=== PATIENT | female | born 1935 | race Caucasian/White ===

== ENCOUNTER 2017-06-24 11:43 | Day surgery (SDC) | payer MEDICARE, OTHER ==
[2017-06-22 12:57] LABS: BASOPHILS % (AUTO) 0.6 % (0-1); EOSINOPHILS # (AUTO) 0.1 X10'3 (0-0.9); EOSINOPHILS % (AUTO) 2.5 % (0-6); HEMATOCRIT 40.5 % (35.0-45.0); LYMPHOCYTES % (AUTO) 18.4 % (21-51); MEAN CORPUSCULAR HEMOGLOBIN 32.1 PG (27.0-31.0); MEAN CORPUSCULAR HGB CONC 34.6 % (33.0-36.5); MEAN PLATELET VOLUME 8.4 FL (7.4-10.4); MONOCYTES # (AUTO) 0.4 X10'3 (0-0.9); MONOCYTES % (AUTO) 7.9 % (2-12); NEUTROPHILS # (AUTO) 3.7 X10'3 (1.8-7.7); NEUTROPHILS % (AUTO) 70.6 % (42-75); PLATELET COUNT 162 X10'3 (140-440); RED BLOOD COUNT 4.36 X10'6 (4.20-5.60); WHITE BLOOD COUNT 5.2 X10'3 (4.5-11.0)
[2017-06-22 13:06] LABS: ALBUMIN 3.9 G/DL (3.4-5.0); ANION GAP 8 (8-16); BLOOD UREA NITROGEN 13 MG/DL (7-18); BUN/CREATININE RATIO 12.6 (6.6-38.0); CALCIUM 9.3 MG/DL (8.5-10.1); CHLORIDE 104 MMOL/L (99-107); CREATININE 1.03 MG/DL (0.40-0.90); GLUCOSE 128 MG/DL (70-104); INR 1.2 INR; POTASSIUM 4.1 MMOL/L (3.5-5.1); SODIUM 142 MMOL/L (135-145); TOTAL CARBON DIOXIDE 30.4 MMOL/L (24-32); eGFR 51 ML/MIN
[2017-06-24] VITALS (13 sets, daily range): BP systolic 125–177; BP diastolic 56–89
[~2017-06-24] VITALS: Ht 165.1 cm; Wt 87.9 kg
[~2017-06-24 11:43] MED LIST: AMIO200T36 PO; APIX2.5T PO; ASCO10007 PO; CARV25TA PO; CHOL10002 PO; COLLAGEN PEPTIDE PO; DIGO250T PO; ENZY1TAB5 PO; GARL1000 PO; IMMUNE COMPLEX PO; KRIL1CAP12 PO; LEVO137T2 PO; MAGNESIUM LACTATE PO; MULT-1096 PO; MULT-1179 PO; UBID100C45 PO; [UNRECOGNIZED DRUG - OTHER] PO; [UNRECOGNIZED DRUG - OTHER] PO; [UNRECOGNIZED DRUG - OTHER] PO; ferrous gluconate PO
[2017-06-24] MEDS ORDERED: LORazepam 0.5 MG tablet PO ONE ×2 (12:05→12:10)
[2017-06-24] MEDS ORDERED: diphenhydrAMINE 25mg capsule PO ONE ×2 (12:05→12:10)
[2017-06-24] MEDS ORDERED: normal saline 1000ml 1,000 ML IV SCH ×2 (12:05→12:15)
[2017-06-24] MEDS ORDERED: MIDAZolam 5mg/ml 2ml vial IV ONE (12:10)
[2017-06-24] MEDS ORDERED: atropine 0.1mg/ml 10ml syringe IV ONE (12:10)
[2017-06-24] MEDS ORDERED: morphine 10mg/ml inj. IV ONE (12:10)
[2017-06-24] MEDS ORDERED: amiodarone 150mg/dext, iso-os 100 ML IV ONE (12:10)
[2017-06-24] MEDS ORDERED: CINN500C15 PO (13:05)
[2017-06-24] MEDS ORDERED: AMIO200T57 PO (13:05)
[2017-06-24] MEDS ORDERED: C,E,1CAP PO (13:32)
[2017-06-24] MEDS ORDERED: MAGN400C PO (13:32)
[2017-06-24] MEDS ORDERED: [UNRECOGNIZED DRUG - OTHER] PO (13:34)
== END 2017-06-24 16:00 | disposition home or self-care (01) ==
LOC: SSTAY O 11:43
PROVIDERS: ATTEND Internal Medicine Cardiovascular Disease
DX: I48.1 Persistent atrial fibrillation (principal); I10 Essential (primary) hypertension; I25.10 Atherosclerotic heart disease of native coronary artery without angina pectoris; F41.9 Anxiety disorder, unspecified; E03.9 Hypothyroidism, unspecified; G47.33 Obstructive sleep apnea (adult) (pediatric); Z90.49 Acquired absence of other specified parts of digestive tract; Z96.651 Presence of right artificial knee joint; Z98.42 Cataract extraction status, left eye; Z98.41 Cataract extraction status, right eye; Z90.710 Acquired absence of both cervix and uterus; Z98.51 Tubal ligation status; Z88.7 Allergy status to serum and vaccine; Z88.6 Allergy status to analgesic agent; Z88.1 Allergy status to other antibiotic agents; Z88.2 Allergy status to sulfonamides; Z88.8 Allergy status to other drugs, medicaments and biological substances; Z79.01 Long term (current) use of anticoagulants; Z95.0 Presence of cardiac pacemaker; Z79.899 Other long term (current) drug therapy; Z98.890 Other specified postprocedural states
CPT/HCPCS: 36415; 80048; 85025; 85610; 92960; 93005; J2250; J2270; J7030; A4620; J0282; J0461

== ENCOUNTER 2017-07-22 15:51 | Outpatient (CLI) | payer MEDICARE, OTHER ==
[~2017-07-22] VITALS: Ht 162.6 cm; Wt 86.2 kg
[~2017-07-22 15:51] MED LIST changes: +AMIO200T57 PO; +C,E,1CAP PO; +CINN500C15 PO; +MAGN400C PO; -MAGNESIUM LACTATE PO; +[UNRECOGNIZED DRUG - OTHER] PO; -[UNRECOGNIZED DRUG - OTHER] PO; -[UNRECOGNIZED DRUG - OTHER] PO
[2017-07-22 16:20] LABS: TOTAL HEMOGLOBIN 11.5 G/dl (12.0-16.0)
[2017-07-22] MEDS ORDERED: albuterol 2.5 MG/3 ML nebule NEB PRN (16:50)
== END 2017-07-22 23:59 | disposition home or self-care (01) ==
LOC: RT 15:51
PROVIDERS: ATTEND Internal Medicine Cardiovascular Disease
DX: Z51.81 Encounter for therapeutic drug level monitoring (principal); J98.4 Other disorders of lung; I10 Essential (primary) hypertension; Z79.899 Other long term (current) drug therapy
CPT/HCPCS: 71046; 85018; 94010; 94727; 94729

== ENCOUNTER 2017-09-25 18:33 | Emergency (ER) | payer MEDICARE, OTHER ==
[~2017-09-25] VITALS: Ht 162.6 cm; Wt 73.3 kg
[2017-09-25 18:41] VITALS: BP 165/89
[2017-09-26] MEDS ORDERED: AMOX-419 PO (13:12)
== END 2017-09-25 22:14 | disposition left against medical advice (07) ==
LOC: ER 18:33
DX: M79.676 Pain in unspecified toe(s) (principal); Z53.21 Procedure and treatment not carried out due to patient leaving prior to being seen by health care provider

== ENCOUNTER 2017-09-26 11:19 | Emergency (ER) | payer MEDICARE, OTHER ==
[~2017-09-26] VITALS: Ht 162.6 cm; Wt 81.8 kg
[2017-09-26 11:31] VITALS: BP 137/65
[2017-09-26] MEDS ORDERED: TETanus/Pertussis (Acell)/Diphther VAC/PF (Tdap-Adult) 0.5ml syringe IM ONE (13:05)
[2017-09-26] MEDS ORDERED: amox tr/potassium clavulanate 875/125mg TAB PO ONE (13:05)
[2017-09-26] MEDS ORDERED: AMOX-419 PO (13:12)
== END 2017-09-26 13:28 | disposition home or self-care (01) ==
LOC: ER 11:20
DX: L08.9 Local infection of the skin and subcutaneous tissue, unspecified (principal); I10 Essential (primary) hypertension; Z90.710 Acquired absence of both cervix and uterus; Z98.890 Other specified postprocedural states; Z88.2 Allergy status to sulfonamides; Z88.5 Allergy status to narcotic agent; Z88.1 Allergy status to other antibiotic agents; Z79.899 Other long term (current) drug therapy; Z79.2 Long term (current) use of antibiotics
CPT/HCPCS: 90471; 90715; 99283

== ENCOUNTER 2019-11-16 08:38 | Day surgery (SDC) | payer MEDICARE, OTHER ==
[2019-11-15 15:22] LABS: BASOPHILS % (AUTO) 0.9 % (0-1); EOSINOPHILS # (AUTO) 0.1 X10'3 (0-0.9); HEMATOCRIT 42.9 % (35.0-45.0); HEMOGLOBIN 14.3 g/dl (12.0-16.0); LYMPHOCYTES # (AUTO) 1.5 X10'3 (1.1-4.8); LYMPHOCYTES % (AUTO) 31.7 % (21-51); MEAN CORPUSCULAR HEMOGLOBIN 31.9 PG (27.0-31.0); MEAN CORPUSCULAR HGB CONC 33.3 g/dL (33.0-36.5); MEAN CORPUSCULAR VOLUME 95.6 FL (78-98); MEAN PLATELET VOLUME 8.5 FL (7.4-10.4); MONOCYTES # (AUTO) 0.5 X10'3 (0-0.9); MONOCYTES % (AUTO) 10.9 % (2-12); NEUTROPHILS # (AUTO) 2.5 X10'3 (1.8-7.7); NEUTROPHILS % (AUTO) 53.5 % (42-75); PLATELET COUNT 182 X10'3 (140-440); RED BLOOD COUNT 4.49 X10'6 (4.20-5.60); RED CELL DISTRIBUTION WIDTH 13.9 % (11.5-14.5); WHITE BLOOD COUNT 4.7 X10'3 (4.5-11.0)
[2019-11-15 15:32] LABS: ALBUMIN 3.9 G/DL (3.4-5.0); ANION GAP 6 (8-16); BLOOD UREA NITROGEN 16 MG/DL (7-18); BUN/CREATININE RATIO 18.8 (6.6-38.0); CALCIUM 9.4 MG/DL (8.5-10.1); CHLORIDE 106 MMOL/L (99-107); CREATININE 0.85 MG/DL (0.40-0.90); GLUCOSE 90 MG/DL (70-104); POTASSIUM 4.2 MMOL/L (3.5-5.1); SODIUM 140 MMOL/L (135-145); TOTAL CARBON DIOXIDE 28.2 MMOL/L (24-32); eGFR 63 ML/MIN
[2019-11-16] VITALS (19 sets, daily range): BP systolic 118–154; BP diastolic 62–88
[~2019-11-16] VITALS: Ht 162.6 cm; Wt 79.2 kg
[~2019-11-16 08:38] MED LIST changes: -AMIO200T57 PO; +AMIO200T61 PO; +ASCO100031 PO; -ASCO10007 PO
[2019-11-16] MEDS ORDERED: amiodarone 150mg/dext, iso-os 100 ML IV ONE (09:05)
[2019-11-16] MEDS ORDERED: atropine 0.1mg/ml 10ml syringe IV ONE (09:05)
[2019-11-16] MEDS ORDERED: MIDAZolam 1mg/ml 10ml vial IV ONE (09:05)
[2019-11-16] MEDS ORDERED: morphine 10mg/ml inj. IV ONE (09:05)
[2019-11-16] MEDS ORDERED: LORazepam 0.5 MG tablet PO ONE (09:05)
[2019-11-16] MEDS ORDERED: diphenhydrAMINE 25mg capsule PO ONE (09:05)
[2019-11-16] MEDS ORDERED: SOTA80TA46 PO (09:10)
[2019-11-16] MEDS ORDERED: DIGO125T20 PO (09:13)
== END 2019-11-16 12:55 | disposition home or self-care (01) ==
LOC: SSTAY O 08:38
PROVIDERS: ATTEND Internal Medicine Cardiovascular Disease
DX: I48.91 Unspecified atrial fibrillation (principal); I10 Essential (primary) hypertension; I25.10 Atherosclerotic heart disease of native coronary artery without angina pectoris; G47.30 Sleep apnea, unspecified
CPT/HCPCS: 36415; 80048; 85025; 85610; 92960; J2250; J2270; Q0163; 93005

== ENCOUNTER 2020-04-18 07:15 | Day surgery (SDC) | payer MEDICARE, OTHER ==
[2020-04-17 15:49] LABS: BASOPHILS % (AUTO) 0.7 % (0-1); EOSINOPHILS # (AUTO) 0.2 X10'3 (0-0.9); HEMATOCRIT 40.5 % (35.0-45.0); HEMOGLOBIN 13.7 g/dl (12.0-16.0); LYMPHOCYTES # (AUTO) 1.2 X10'3 (1.1-4.8); LYMPHOCYTES % (AUTO) 23.3 % (21-51); MEAN CORPUSCULAR HGB CONC 33.9 g/dL (33.0-36.5); MEAN CORPUSCULAR VOLUME 94.6 FL (78-98); MEAN PLATELET VOLUME 8.5 FL (7.4-10.4); MONOCYTES # (AUTO) 0.6 X10'3 (0-0.9); MONOCYTES % (AUTO) 10.8 % (2-12); NEUTROPHILS # (AUTO) 3.3 X10'3 (1.8-7.7); NEUTROPHILS % (AUTO) 62.2 % (42-75); PLATELET COUNT 162 X10'3 (140-440); RED BLOOD COUNT 4.28 X10'6 (4.20-5.60); RED CELL DISTRIBUTION WIDTH 13.9 % (11.5-14.5); WHITE BLOOD COUNT 5.3 X10'3 (4.5-11.0)
[2020-04-17 15:59] LABS: ANION GAP 7 (8-16); BLOOD UREA NITROGEN 15 MG/DL (7-18); BUN/CREATININE RATIO 16.9 (6.6-38.0); CALCIUM 9.8 MG/DL (8.5-10.1); CHLORIDE 106 MMOL/L (99-107); CREATININE 0.89 MG/DL (0.40-0.90); GLUCOSE 105 MG/DL (70-104); PARTIAL THROMBOPLASTIN TIME 26 SECONDS (22-32); POTASSIUM 4.4 MMOL/L (3.5-5.1); SODIUM 143 MMOL/L (135-145); TOTAL CARBON DIOXIDE 29.8 MMOL/L (24-32); eGFR 60 ML/MIN
[~2020-04-18] VITALS: Ht 162.6 cm; Wt 86.6 kg
[2020-04-18] VITALS (9 sets, daily range): BP systolic 137–161; BP diastolic 42–124
[~2020-04-18 07:15] MED LIST changes: -AMIO200T36 PO; -AMIO200T61 PO; -CARV25TA PO; +DIGO125T20 PO; -DIGO250T PO; +SOTA80TA46 PO; -[UNRECOGNIZED DRUG - OTHER] PO; -ferrous gluconate PO
[2020-04-18] MEDS ORDERED: cefazolin/dext.iso 2gm/50ml 50 ML IV ONE (08:20)
[2020-04-18] MEDS ORDERED: iron liquid PO (08:28)
[2020-04-18] MEDS ORDERED: BETA300T PO (08:28)
[2020-04-18] MEDS ORDERED: SELE200C PO (08:28)
[2020-04-18] MEDS ORDERED: VITA-268 PO (08:28)
[2020-04-18] MEDS ORDERED: [UNRECOGNIZED DRUG - OTHER] PO (08:28)
[2020-04-18] MEDS ORDERED: LEVO25TA2 PO (08:28)
[2020-04-18] MEDS ORDERED: [UNRECOGNIZED DRUG - OTHER] PO (08:28)
[2020-04-18] MEDS ORDERED: CHRM1TAB PO (08:28)
[2020-04-18] MEDS ORDERED: CARV-50 PO (08:28)
[2020-04-18] MEDS ORDERED: DIGO125T PO (08:28)
[2020-04-18] MEDS ORDERED: LIDOcaine 1% (10mg/ml)w/preservative injection 20ml MDV ONE (09:23)
[2020-04-18] MEDS ORDERED: fentaNYL/PF 50MCG/1 ML 2ML syringe ONE (09:23)
[2020-04-18] MEDS ORDERED: midazolam 2 mg/2 ml injection ONE (09:23)
[2020-04-18] MEDS ORDERED: ceFAZolin 1000mg inj ONE (10:04)
[2020-04-18] MEDS ORDERED: HYDROcodone/acetaminophen 10/325mg tab PO PRN (11:35)
[2020-04-18] MEDS ORDERED: HYDROcodone/acetaminophen 5mg/325mg tablet PO PRN (11:35)
[2020-04-18] MEDS ORDERED: vancomycin/NS 1 GM ADD-VANTAGE 250 ML IV ONE (12:00)
== END 2020-04-18 15:00 | disposition home or self-care (01) ==
LOC: SSTAY O 07:15
PROVIDERS: ATTEND Internal Medicine Cardiovascular Disease
DX: Z45.010 Encounter for checking and testing of cardiac pacemaker pulse generator [battery] (principal); I49.5 Sick sinus syndrome; I48.92 Unspecified atrial flutter; R06.00 Dyspnea, unspecified
CPT/HCPCS: 33228; 36415; 80048; 85025; 85610; 85730; 93005; C1785; J0690; J2001; J2250; J3010; J3370; 99152; 99153; A4620; A6258; A6449; C1894

== ENCOUNTER 2020-07-13 07:07 | Day surgery (SDC) | payer MEDICARE, OTHER ==
[2020-07-09 15:44] LABS: EOSINOPHILS # (AUTO) 0.2 X10'3 (0-0.9); EOSINOPHILS % (AUTO) 3.6 % (0-6); LYMPHOCYTES # (AUTO) 1.1 X10'3 (1.1-4.8); LYMPHOCYTES % (AUTO) 25.9 % (21-51); MEAN CORPUSCULAR HEMOGLOBIN 32.3 PG (27.0-31.0); MEAN PLATELET VOLUME 8.7 FL (7.4-10.4); MONOCYTES # (AUTO) 0.4 X10'3 (0-0.9); NEUTROPHILS # (AUTO) 2.6 X10'3 (1.8-7.7); NEUTROPHILS % (AUTO) 59.5 % (42-75); PRE OP HEMATOCRIT 41.6 % (35.0-45.0); PRE OP HEMOGLOBIN 14.2 g/dL (12.0-16.0); PRE OP PLATELET COUNT 132 X10'3 (140-440); RED BLOOD COUNT 4.38 X10'6 (4.20-5.60); RED CELL DISTRIBUTION WIDTH 14.9 % (11.5-14.5)
[2020-07-09 15:57] LABS: PRE OP INR 1.2 INR; PRE OP PROTIME 12.4 SECONDS (9.0-12.0)
[2020-07-09 16:07] LABS: ALBUMIN 4.1 G/DL (3.4-5.0); ALBUMIN/GLOBULIN RATIO 1.2 (1.1-1.5); ALKALINE PHOSPHATASE 92 IU/L (46-116); BLOOD UREA NITROGEN 12 MG/DL (7-18); BUN/CREATININE RATIO 13.8 (6.6-38.0); CHLORIDE 104 MMOL/L (99-107); CREATININE 0.87 MG/DL (0.40-0.90); PRE OP ALT 47 U/L (30-65); PRE OP ANION GAP 8 (8-16); PRE OP AST 40 U/L (10-37); PRE OP BILIRUB, TOTAL 0.7 MG/DL (0.0-1.0); PRE OP GLUCOSE 99 MG/DL (70-104); PRE OP POTASSIUM 4.1 MMOL/L (3.4-5.1); PRE OP SODIUM 142 MMOL/L (135-145); TOTAL CARBON DIOXIDE 29.6 MMOL/L (24-32); TOTAL PROTEIN 7.4 G/DL (6.4-8.2); eGFR 62 ML/MIN
[~2020-07-13] VITALS: Ht 165.1 cm; Wt 86.0 kg
[~2020-07-13 07:07] MED LIST changes: +BETA300T PO; +BUPIVAcaine/PF 2.5 mg/ml (0.25%) 30ml vial ONE; -C,E,1CAP PO; +CARV-50 PO; +CHRM1TAB PO; -CINN500C15 PO; -COLLAGEN PEPTIDE PO; +DIGO125T PO; -DIGO125T20 PO; +DOCUMENT DATE & TIME OF BETA-BLOCKER PO ONE; -ENZY1TAB5 PO; +GINK120C PO; +IODI1GRA PO; -KRIL1CAP12 PO; -LEVO137T2 PO; +LEVO25TA2 PO; -MULT-1096 PO; -MULT-1179 PO; +QUER1POW PO; +SELE200C PO; -SOTA80TA46 PO; +VITA-268 PO; +ZINC50TA67 PO; +[UNRECOGNIZED DRUG - OTHER] PO; +[UNRECOGNIZED DRUG - OTHER] PO; +[UNRECOGNIZED DRUG - OTHER] PO; +[UNRECOGNIZED DRUG - OTHER] PO; +[UNRECOGNIZED DRUG - OTHER] PO; -[UNRECOGNIZED DRUG - OTHER] PO; +cefazolin/dext.iso 2gm/100ml IV ONE; +famotidine 20mg tablet PO ONE; +ringers solution, lacted 1,000 ML IV SCH
[2020-07-13 07:25] VITALS: BP 141/88
[2020-07-13] MEDS ORDERED: fentaNYL/PF 50MCG/1 ML 2ML syringe ONE (09:26)
[2020-07-13] MEDS ORDERED: midazolam 1 mg/ML 2ml injection ONE (09:41)
[2020-07-13] MEDS ORDERED: proCHLORperazine 10 MG/2 ml inj IV PRN (09:50)
[2020-07-13] MEDS ORDERED: ondansetron/PF 4mg/2ml inj IV PRN (09:50)
[2020-07-13] MEDS ORDERED: ringers solution, lacted 1,000 ML IV SCH (09:50)
[2020-07-13] MEDS ORDERED: fentaNYL/PF 50MCG/1 ML 2ML syringe IV PRN ×2 (09:50)
[2020-07-13] MEDS ORDERED: acetaminophen 1,000mg/100ml IV 100 ML IV PRN (09:50)
[2020-07-13] MEDS ORDERED: propofol inj 20 ML IV ONE (09:59)
[2020-07-13 10:05] VITALS: BP 127/66
--- NOTE | 2020-07-13 10:05 | NUR ---
Received from OR via BED , accompanied by Anesthesiologist and report given by Anesthesiologist. PATIENT AWAKE AND RESPONSIVE, NO S/S OF PAIN, V/S WNL, PACER SPIKES PRESENT OCCASIONALLY, SCD ON, 20G TO LUE, RIGHT WRIST DRESSING CDI. ICE AND ELEVATED RUE. NC TO 2L PT STATES SHE HAS A CPAP MACHINE AT HOME.
[2020-07-13 10:10] VITALS: BP 144/68
[2020-07-13 10:20] VITALS: BP 137/64
[2020-07-13 10:30] VITALS: BP 133/68
--- NOTE | 2020-07-13 11:04 | NUR ---
PATIENT A&OX4, DENIES PAIN, V/S STABLE, SCD OFF, 20G TO LUE D/C, drsg to RIGHT HAND CDI. I HAVE REVIEWED D/C ORDERS WITH PATIENT AND HER DAUGHTER AND THEY HAVE VERBALIZED UNDERSTANDING. PATIENT D/C HOME WITH ALL BELONGINGS AND DAUGHTER GAVE TRANSPORT. PT KNOWS TO USE HER CPAP FOR AT LEAST NEXT 24 HOURS WHENEVER RESTING. ICE PACKS SENT HOME WITH PATIENT.
== END 2020-07-13 10:55 | disposition home or self-care (01) ==
LOC: PAS 07:07
PROVIDERS: ATTEND Orthopaedic Surgery Hand Surgery
DX: G56.01 Carpal tunnel syndrome, right upper limb (principal); Z20.822 Contact with and (suspected) exposure to COVID-19; G47.30 Sleep apnea, unspecified; I48.91 Unspecified atrial fibrillation; E03.9 Hypothyroidism, unspecified; E66.9 Obesity, unspecified; Z68.31 Body mass index [BMI] 31.0-31.9, adult; Z86.11 Personal history of tuberculosis; Z88.2 Allergy status to sulfonamides; Z88.5 Allergy status to narcotic agent; Z88.8 Allergy status to other drugs, medicaments and biological substances; Z88.7 Allergy status to serum and vaccine; Z79.899 Other long term (current) drug therapy; Z79.01 Long term (current) use of anticoagulants; Z90.710 Acquired absence of both cervix and uterus; Z98.890 Other specified postprocedural states; Z90.49 Acquired absence of other specified parts of digestive tract; Z98.51 Tubal ligation status
CPT/HCPCS: 36415; 64721; 80053; 82948; 85025; 85610; 85730; J2250; J2704; J3010; J3490; U0003; U0005; A4215; J7120

== ENCOUNTER 2022-05-14 15:18 | Emergency (ER) | payer MEDICARE, OTHER ==
[~2022-05-14] VITALS: Ht 163.8 cm; Wt 76.4 kg
[~2022-05-14 15:18] MED LIST changes: -BUPIVAcaine/PF 2.5 mg/ml (0.25%) 30ml vial ONE; -DOCUMENT DATE & TIME OF BETA-BLOCKER PO ONE; -cefazolin/dext.iso 2gm/100ml IV ONE; -famotidine 20mg tablet PO ONE; -ringers solution, lacted 1,000 ML IV SCH
[2022-05-14 15:46] LABS: BASOPHILS % (AUTO) 0.7 % (0-1); EOSINOPHILS # (AUTO) 0.2 X10'3 (0-0.9); EOSINOPHILS % (AUTO) 3.3 % (0-6); HEMATOCRIT 40.7 % (35.0-45.0); HEMOGLOBIN 13.5 g/dl (12.0-16.0); LYMPHOCYTES # (AUTO) 1.2 X10'3 (1.1-4.8); LYMPHOCYTES % (AUTO) 22.9 % (21-51); MEAN CORPUSCULAR HEMOGLOBIN 30.9 PG (27.0-31.0); MEAN CORPUSCULAR HGB CONC 33.1 g/dL (33.0-36.5); MEAN CORPUSCULAR VOLUME 93.3 FL (78-98); MEAN PLATELET VOLUME 8.1 FL (7.4-10.4); MONOCYTES # (AUTO) 0.6 X10'3 (0-0.9); NEUTROPHILS # (AUTO) 3.1 X10'3 (1.8-7.7); NEUTROPHILS % (AUTO) 62.1 % (42-75); PLATELET COUNT 182 X10'3 (140-440); RED BLOOD COUNT 4.37 X10'6 (4.20-5.60); RED CELL DISTRIBUTION WIDTH 14.5 % (11.5-14.5); WHITE BLOOD COUNT 5.1 X10'3 (4.5-11.0)
[2022-05-14 15:52] LABS: ALANINE AMINOTRANSFERASE 38 U/L (12-78); ALBUMIN 4.2 G/DL (3.4-5.0); ALBUMIN/GLOBULIN RATIO 1.3 (1.1-1.5); ALKALINE PHOSPHATASE 118 IU/L (46-116); ANION GAP 6 (8-16); ASPARTATE AMINO TRANSFERASE 29 U/L (10-37); BILIRUBIN,TOTAL 0.7 MG/DL (0.1-1.0); BLOOD UREA NITROGEN 14 MG/DL (7-18); BUN/CREATININE RATIO 18.4 (6.6-38.0); CALCIUM 9.5 MG/DL (8.5-10.1); CHLORIDE 106 MMOL/L (99-107); CREATININE 0.76 MG/DL (0.40-0.90); GLUCOSE 109 MG/DL (70-104); POTASSIUM 4.2 MMOL/L (3.5-5.1); SODIUM 142 MMOL/L (135-145); TOTAL CARBON DIOXIDE 29.9 MMOL/L (24-32); TOTAL PROTEIN 7.5 G/DL (6.4-8.2); eGFR 72 ML/MIN
[2022-05-14 15:59] LABS: MAGNESIUM 2.2 MG/DL (1.5-2.4)
[2022-05-14 16:31] VITALS: BP 167/81
== END 2022-05-14 20:29 | disposition left against medical advice (07) ==
LOC: ER 15:18
DX: R07.9 Chest pain, unspecified (principal); Z53.21 Procedure and treatment not carried out due to patient leaving prior to being seen by health care provider
CPT/HCPCS: 36415; 71045; 80053; 83735; 83880; 84484; 85025; 93005; 99281

== ENCOUNTER 2022-12-11 08:31 | Inpatient (IN) | payer MEDICARE, OTHER ==
[~2022-12-11] VITALS: Ht 162.6 cm; Wt 80.0 kg
[~2022-12-11 08:31] MED LIST changes: +CEFD300C3 PO
--- NOTE | 2022-12-11 09:07 | NUR ---
PT LOCO WITH C/O SOB X 1 WEEK. WAS SEEN PREVIOUS FOR SAME AND IS ON ANTIBIOTIC FOR IT. PT DENIES PAIN AT THIS MINE.
--- NOTE | 2022-12-11 09:32 | NUR ---
helped pt to the bathroom ua collected
[2022-12-11 09:47] LABS: BILIRUBIN,URINE NEGATIVE (Neg); CLARITY,URINE CLEAR (Clear); COLOR,URINE YELLOW (Yellow); GLUCOSE, URINE NEGATIVE (Neg); KETONES,URINE NEGATIVE (Neg); LEUKOCYTE ESTERASE ,URINE TRACE (Neg); NITRITES, URINE NEGATIVE (Neg); OCCULT BLOOD,URINE TRACE-INTACT (Neg); PH,URINE 6.5 (4.8-8.0); PROTEIN,URINE NEGATIVE (Neg); UROBILINOGEN,URINE 0.2 E.U/dL (0.2-1.0)
[2022-12-11] MEDS ORDERED: iohexol 350MG/ML 100ml bottle IV ONE (09:51)
[2022-12-11 09:53] LABS: SQUAMOUS EPITHELIAL CELL,UR FEW /LPF (FEW); TRANSITIONAL EPI CELLS,URINE FEW /HPF; UA COLLECTION TYPE NON-SPECIFIED
[2022-12-11 09:54] LABS: BACTERIA,URINE FEW /HPF (Neg); RBC,URINE 0-2 /HPF (0-2); WBC,URINE 0-4 /HPF (0-4)
[2022-12-11 09:57] LABS: BASOPHILS # (AUTO) 0.1 X10'3 (0-0.2); BASOPHILS % (AUTO) 1.2 % (0-1); EOSINOPHILS # (AUTO) 0.1 X10'3 (0-0.9); EOSINOPHILS % (AUTO) 3.1 % (0-6); HEMATOCRIT 33.5 % (35.0-45.0); HEMOGLOBIN 11.1 g/dl (12.0-16.0); LYMPHOCYTES # (AUTO) 0.8 X10'3 (1.1-4.8); LYMPHOCYTES % (AUTO) 15.8 % (21-51); MEAN CORPUSCULAR HEMOGLOBIN 30.7 PG (27.0-31.0); MEAN CORPUSCULAR HGB CONC 33.3 g/dL (33.0-36.5); MEAN CORPUSCULAR VOLUME 92.1 FL (78-98); MEAN PLATELET VOLUME 7.6 FL (7.4-10.4); MONOCYTES # (AUTO) 0.5 X10'3 (0-0.9); MONOCYTES % (AUTO) 10.4 % (2-12); NEUTROPHILS # (AUTO) 3.3 X10'3 (1.8-7.7); NEUTROPHILS % (AUTO) 69.5 % (42-75); PLATELET COUNT 209 X10'3 (140-440); RED BLOOD COUNT 3.63 X10'6 (4.20-5.60); RED CELL DISTRIBUTION WIDTH 15.1 % (11.5-14.5); WHITE BLOOD COUNT 4.8 X10'3 (4.5-11.0)
--- NOTE | 2022-12-11 10:03 | NUR ---
CONTACT ISOLATION WHILE WTG COVID RESULTS. PT TO CT. PACEMAKER, [employer], INTEROGATED. LABS DRAWN AND PT ON MONITOR. PT A/O X4 IN NAD.
--- NOTE | 2022-12-11 10:09 | NUR ---
SPOKE WITH [employer] REP WHO STATES PACEMAKER IS "NORMAL" AND HE WILL FAX REPORT.
[2022-12-11 10:13] LABS: APTT 31 SECONDS (22-32); INR 1.2 INR; PROTHROMBIN TIME 12.6 SECONDS (9.0-12.0)
[2022-12-11 10:27] LABS: ALANINE AMINOTRANSFERASE 33 U/L (12-78); ALBUMIN 3.5 G/DL (3.4-5.0); ALKALINE PHOSPHATASE 105 IU/L (46-116); ANION GAP 6 (8-16); ASPARTATE AMINO TRANSFERASE 26 U/L (10-37); BILIRUBIN,TOTAL 0.8 MG/DL (0.1-1.0); BLOOD UREA NITROGEN 16 MG/DL (7-18); BUN/CREATININE RATIO 16.2 (10.0-20.0); CALCIUM 9.1 MG/DL (8.5-10.1); CHLORIDE 107 MMOL/L (99-107); CREATININE 0.99 MG/DL (0.40-0.90); GLUCOSE 105 MG/DL (70-104); POTASSIUM 4.3 MMOL/L (3.5-5.1); PRO BRAIN NATRIURETIC PEPTIDE 887 PG/ML (0-450); SODIUM 140 MMOL/L (135-145); TOTAL CARBON DIOXIDE 27.5 MMOL/L (24-32); TOTAL PROTEIN 7.1 G/DL (6.4-8.2); eCRCL 33 ML/MIN; eGFR 53 ML/MIN
--- NOTE | 2022-12-11 10:54 | NUR ---
PT UP AND AMBULATED TO BR. UPON RETURN HER SATS DROPPED TO 89 & PT WAS PLACED ON O2 @ 2LPM
[2022-12-11] MEDS ORDERED: furosemide 10 MG/1 ML 10ml inj IV ONE (11:15)
[2022-12-11 11:34] LABS: ABG HCO3 22.6 mmol/L (22.0-26.0); ABG PCO2 (T) 34.2 mmHg (32.0-45.0); ABG PH (T) 7.438 (7.350-7.450); ABG PO2 (T) 75.4 mmHg (75.0-100.0); ALLEN'S TEST POSITIVE; FCOHb 0.1 % (0.0-3.9); FLOW 3 L/min; FMetHb 0.2 % (0.0-1.5); FO2Hb 94.7 % (94-97); MODE NASAL CANNULA; TOTAL HEMOGLOBIN 12.2 G/dl (12.0-16.0)
[2022-12-11] MEDS ORDERED: potassium Cl 40MEQ/1/2NS 520ml 520 ML IV PRN (12:45)
[2022-12-11] MEDS ORDERED: magnesium 4gm in 100ml NS 100 ML IV PRN (12:45)
[2022-12-11] MEDS ORDERED: ondansetron/PF 4mg/2ml inj IV PRN (12:45)
[2022-12-11] MEDS ORDERED: mag hydrox/Alum hydrox/simeth 30ml oral suspension PO PRN (12:45)
[2022-12-11] MEDS ORDERED: potassium Cl 20 mEq SR tablet PO PRN ×2 (12:45)
[2022-12-11] MEDS ORDERED: magnesium Cl slow-release 64mg tablet PO PRN (12:45)
[2022-12-11] MEDS ORDERED: magnesium hydroxide 30ml (MOM) UD suspension PO PRN (12:45)
[2022-12-11] MEDS ORDERED: magnesium 2GM in 50ml NS 50 ML IV PRN (12:45)
[2022-12-11] MEDS ORDERED: acetaminophen 325mg tablet PO PRN (12:45)
[2022-12-11] MEDS ORDERED: LEVO25TA7 PO ×2 (13:18)
[2022-12-11] MEDS ORDERED: CHOL500050 PO (13:18)
[2022-12-11] MEDS ORDERED: OMEG100037 PO (13:18)
[2022-12-11] MEDS ORDERED: CARV6.253 PO (13:18)
[2022-12-11] MEDS ORDERED: APIX5TAB3 PO (13:18)
--- NOTE | 2022-12-11 13:35 | NUR ---
PT A/O X4 AND GETS UP TO BS CAMODE W/O ASSIST.
[2022-12-11] MEDS: K and/or MAG REPLACEMENT MC SCH (19:14)
[2022-12-11] MEDS ORDERED: carVEDilol 12.5mg tablet PO ONE (19:25)
[2022-12-11] MEDS ORDERED: amLODIPine 5mg tablet PO ONE (19:25)
--- NOTE | 2022-12-11 19:44 | NUR ---
SPOKE WITH MD NEWSOME TO CLARIFY MEDICATION ORDER. PER MERCEDEZ GIVE THE 31.25MG PO DOSE OF COREG. HOLD THE 25MG PO DOSE OF COREG. HOLD THE 10MG DOSE OF NORVASC. IF SYSTOLIC BP STILL OVER 160 AFTER ONE HOUR GIVE 5MG PO NORVASC.
[2022-12-11] MEDS: carvedilol 6.25mg tablet PO SCH (19:52)
[2022-12-11] MEDS: apixaban 5mg tablet PO SCH (19:52)
[2022-12-11] MEDS ORDERED: heparin, porcine 5000 units/ml vial SQ SCH (20:00)
--- NOTE | 2022-12-11 22:34 | NUR ---
PT IS REFUSING TO WEAR THE CPAP PROVIDED BY [facility]. PT HAS BEEN EDUCATED ON THE IMPORTANCE OF O2 LEVELS. PT INFORMED THAT SHE IS ABLE TO HAVE SOMEONE BRING HERS FROM HOME.
[2022-12-11 23:10] VITALS: PULSE 60; RESP 16; O2SAT 94
--- NOTE | 2022-12-12 00:30 | NUR ---
ATTEMPTED TO CALL REPORT TO FLOOR. PER RN YOSEPH RECIEVING NURSE WILL CALL BACK.
[2022-12-12 01:00] VITALS: BP 148/45; PULSE 53; RESP 14; TEMP 98.2; O2SAT 95
--- NOTE | 2022-12-12 01:00 | NUR ---
RECIEVED PT REPORT FROM SIOBHAN THE ER NURSE. PT TRANSFERRED TO BED AND MADE HER COMFORTABLE.
[2022-12-12 06:00] VITALS: BP 140/75; PULSE 80; RESP 15; TEMP 98.1; O2SAT 96
[2022-12-12 06:15] LABS: BASOPHILS % (AUTO) 0.8 % (0-1); EOSINOPHILS # (AUTO) 0.1 X10'3 (0-0.9); EOSINOPHILS % (AUTO) 2.5 % (0-6); HEMATOCRIT 33.1 % (35.0-45.0); HEMOGLOBIN 11.1 g/dl (12.0-16.0); LYMPHOCYTES # (AUTO) 1.1 X10'3 (1.1-4.8); LYMPHOCYTES % (AUTO) 20.7 % (21-51); MEAN CORPUSCULAR HEMOGLOBIN 30.8 PG (27.0-31.0); MEAN CORPUSCULAR HGB CONC 33.5 g/dL (33.0-36.5); MEAN CORPUSCULAR VOLUME 91.9 FL (78-98); MEAN PLATELET VOLUME 8.1 FL (7.4-10.4); MONOCYTES # (AUTO) 0.7 X10'3 (0-0.9); MONOCYTES % (AUTO) 13.4 % (2-12); NEUTROPHILS # (AUTO) 3.3 X10'3 (1.8-7.7); NEUTROPHILS % (AUTO) 62.6 % (42-75); PLATELET COUNT 215 X10'3 (140-440); RED BLOOD COUNT 3.61 X10'6 (4.20-5.60); RED CELL DISTRIBUTION WIDTH 14.9 % (11.5-14.5); WHITE BLOOD COUNT 5.2 X10'3 (4.5-11.0)
--- NOTE | 2022-12-12 06:38 | NUR ---
Patient in room [facility]TH[facility] 4024. I have received report from BECKY Silva and had the opportunity to ask questions and assume patient care.
[2022-12-12 06:47] LABS: ALBUMIN 3.3 G/DL (3.4-5.0); ANION GAP 8 (8-16); BLOOD UREA NITROGEN 20 MG/DL (7-18); BUN/CREATININE RATIO 20.4 (10.0-20.0); CALCIUM 9.2 MG/DL (8.5-10.1); CHLORIDE 104 MMOL/L (99-107); CREATININE 0.98 MG/DL (0.40-0.90); GLUCOSE 105 MG/DL (70-104); MAGNESIUM 2.2 MG/DL (1.5-2.4); POTASSIUM 3.7 MMOL/L (3.5-5.1); SODIUM 139 MMOL/L (135-145); TOTAL CARBON DIOXIDE 27.4 MMOL/L (24-32); eCRCL 34 ML/MIN; eGFR 53 ML/MIN
[2022-12-12] MEDS ORDERED: levoTHYROXINE 25mcg tablet PO SCH ×2 (07:00→08:00)
[2022-12-12] MEDS ORDERED: furosemide 10 MG/1 ML 10ml inj IV SCH (08:00)
[2022-12-12] MEDS ORDERED: EMPAGLIFLOZIN 10 MG TABLET PO SCH (08:00)
[2022-12-12] MEDS: K and/or MAG REPLACEMENT MC SCH (08:00)
[2022-12-12] MEDS: carvedilol 6.25mg tablet PO SCH (08:01)
[2022-12-12] MEDS: apixaban 5mg tablet PO SCH (08:08)
[2022-12-12 10:00] VITALS: BP 158/53; PULSE 60; RESP 18; TEMP 98; O2SAT 96
[2022-12-12] MEDS ORDERED: cholecalciferol (vitamin D3) 1,000 unit (25mcg) tablet PO SCH (12:00)
[2022-12-12] MEDS ORDERED: POTA-206 PO (15:30)
[2022-12-12] MEDS ORDERED: FURO-150 PO (15:30)
[2022-12-12] MEDS ORDERED: EMPA10TA PO (15:30)
--- NOTE | 2022-12-12 17:00 | NUR ---
pt given discharge packet and was able to ask questions about discharge paperwork. Pt in no distress and was taken down to wheelchair to the lobby with all of her belongings. Pt left in a private vehicle with her daughter.
[2022-12-14] MEDS ORDERED: levoTHYROXINE 25mcg tablet PO SCH (07:00)
== END 2022-12-12 16:55 | disposition home or self-care (01) | DRG 291 ==
LOC: ER 08:31 → ED HOLD 12:45 → EDBEDREQ 23:48 → ORTHO 4S 12-12 00:50
PROVIDERS: ADMIT Family Medicine; ATTEND Family Medicine
PROC: B32T1ZZ Computerized Tomography (CT Scan) of Left Pulmonary Artery using Low Osmolar Contrast (ICD-10-PCS; principal; 2022-12-11)
PROC: B3201ZZ Computerized Tomography (CT Scan) of Thoracic Aorta using Low Osmolar Contrast (ICD-10-PCS; 2022-12-11)
PROC: B32S1ZZ Computerized Tomography (CT Scan) of Right Pulmonary Artery using Low Osmolar Contrast (ICD-10-PCS; 2022-12-11)
DX: I11.0 Hypertensive heart disease with heart failure (principal); I50.33 Acute on chronic diastolic (congestive) heart failure; I48.20 Chronic atrial fibrillation, unspecified; E03.9 Hypothyroidism, unspecified; F41.9 Anxiety disorder, unspecified; I25.10 Atherosclerotic heart disease of native coronary artery without angina pectoris; I49.5 Sick sinus syndrome; M17.10 Unilateral primary osteoarthritis, unspecified knee; I27.20 Pulmonary hypertension, unspecified; Z60.2 Problems related to living alone; Z20.822 Contact with and (suspected) exposure to COVID-19; G47.33 Obstructive sleep apnea (adult) (pediatric); Z88.5 Allergy status to narcotic agent; Z88.7 Allergy status to serum and vaccine; Z88.8 Allergy status to other drugs, medicaments and biological substances; Z85.3 Personal history of malignant neoplasm of breast; Z95.0 Presence of cardiac pacemaker; Z79.01 Long term (current) use of anticoagulants; Z79.899 Other long term (current) drug therapy; Z90.710 Acquired absence of both cervix and uterus
CPT/HCPCS: 36415; 36600; 71045; 71275; 80048; 80053; 81001; 82803; 83036; 83605; 83735; 83880; 84145; 84443; 84484; 85018; 85025; 85610; 85730; 87081; 87811; 93005; 93306; 94760; 99285; A4615; G0378; J1940; J3490; Q9967